=== PATIENT | male | born 1960 | race Asian ===

== ENCOUNTER 2017-02-03 04:19 | Emergency (ER) | payer BC ==
[~2017-02-03] VITALS: Ht 180.3 cm; Wt 68.0 kg
[2017-02-03 04:19] VITALS: BP 0/0; PULSE 0; RESP 0; TEMP 97.3; O2SAT 0
--- NOTE | 2017-02-03 04:19 | NUR ---
Per , patient was found "gurgling" in his sleep at approximately 0330 am, attempted CPR and called 911 at 0342 am. 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 Patient arrived in asystole, skin cyanotic and pale, with apneic respirations, chest compressions and CPR in progress. MD at bedside. CPR continued. Per patient , patient has HX of : HTN, Aneurysm, and enlarged aorta. Patient was reported by to have "not been to the doctor since 2013."
--- NOTE | 2017-02-03 04:19 | NUR ---
Placed in room 01 . Placed on gas leak inspector helper, blood pressure machine and pulse oximeter. To gown for exam. Side rails up. Report given to GALE Recinos.
--- NOTE | 2017-02-03 04:19 | NUR ---
Pt to bed 1. Brought in by [facility]. ER physician notified. In full arrest, CPR in progress. Celestine airway placed in field ventilation being assisted by paramedics. 20 L AC IV started in field. Four rounds of Epinephrine given in field. Code michelle called. Please see code blue sheet.
--- NOTE | 2017-02-03 04:20 | NUR ---
Note patty in EDM - 02/03/17 at 0745 by SDEDLJ Per , patient was found "gurgling" in his sleep at approximately 0330 am, attempted CPR and called 911 at 0342 am. 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 Patient arrived in asystole, skin cyanotic and pale, with apneic respirations, chest compressions and CPR in progress. MD at bedside. CPR continued. Per patient , patient has HX of : HTN, Aneurysm, and enlarged aorta. Patient was reported by to have "not been to the doctor since 2013."
--- NOTE | 2017-02-03 04:46 | NUR ---
# 20 gauge angiocath placed to right wrist. Use of asceptic technique. Opsite placed over site. Blood return noted. Blood for lab drawn from site including blood cultures & lactic acid. Flushed with 10 cc of normal saline. No evidence of infiltration noted.
--- NOTE | 2017-02-03 05:22 | NUR ---
[facility] GALE Elise[facility] Case #[id number].
[2017-02-03 05:42] LABS: BASOPHILS # (AUTO) 0.1 K/uL (0.0-0.2); EOSINOPHILS % (AUTO) 0.2 % (0.0-4.0); MEAN CORPUSCULAR HEMOGLOBIN 34 pg (27-31); MONOCYTES # (AUTO) 0.7 K/uL (0.0-1.0)
--- NOTE | 2017-02-03 05:44 | NUR ---
[facility] Department of Cistern Room Operator called contacted by DORA. Spoke with Jacque. No case # given per Cistern Room Operator's office. Confirmed that body may be released to Mortuary.
[2017-02-03 05:45] LABS: CALCIUM 8.3 mg/dL (8.4-11.0); CREATININE 1.96 mg/dL (0.55-1.30)
[2017-02-03 05:49] LABS: BASOPHILS % (AUTO) 1.6 % (0.0-2.0); HEMATOCRIT 37.5 % (36-54); HEMOGLOBIN 12.1 g/dL (14.0-18.0); INR 1.6 (0.80-1.20); LYMPHOCYTES # (AUTO) 3.4 K/uL (1.0-5.5); LYMPHOCYTES % (AUTO) 37.5 % (20.5-51.5); MEAN CORPUSCULAR HGB CONC 32 % (32-36); MEAN CORPUSCULAR VOLUME 104 fL (79.0-98.0); MONOCYTES % (AUTO) 7.5 % (1.7-9.3); NEUTROPHILS # (AUTO) 4.8 K/uL (1.8-7.7); NEUTROPHILS % (AUTO) 53.2 % (40.0-70.0); PLATELET COUNT (AUTO) 83 K/uL (130-430); PROTHROMBIN TIME 17.1 SECS (9.5-12.5); RED BLOOD CELL COUNT(AUTO) 3.61 MIL/uL (4.2-6.2); RED CELL DISTRIBUTION WIDTH 11.6 % (9.0-15.0)
[2017-02-03 05:50] LABS: ALBUMIN 2.9 g/dL (3.4-4.8); TOTAL BILIRUBIN 2.2 mg/dL (0.0-1.0); TOTAL PROTEIN, SERUM 6.2 g/dL (6.4-8.3)
--- NOTE | 2017-02-03 06:22 | NUR ---
[facility] Department of Hospitality Aide called contacted by GALE Elise. Spoke with Jb in regards to patient PCP unwilling to sign certificate no Case # given, per Jb patient does not qualify as a rv detailer's case and "Mortuary will know what to do."
--- NOTE | 2017-02-03 06:22 | NUR ---
Dr. Calderón on the phone with ER MD Dr. Rocha.
[2017-02-03 06:36] LABS: POTASSIUM 4.6 mmol/L (3.5-5.1)
--- NOTE | 2017-02-03 07:12 | NUR ---
Patient family stated they contacted the mortuary via Family members: Crow and Tamia Paredes. Patient stated that they will be calling the hospital is regards to the release of the patient remains.
--- NOTE | 2017-02-03 07:15 | NUR ---
Post mortem care provided to patient by GALE Benton and GALE Elise.
--- NOTE | 2017-02-03 08:40 | NUR ---
Social Service Note: CONSUMER RECRUITER was called to ED to meet with pt's family to discuss mortuary arrangements. Emotional support was provided to pt's family. Pt's family states that [facility] [place]. Pt's family states that they would like to wait until pt's dtr has been contacted and arrives to hospital. CONSUMER RECRUITER alerted pt's family that hospital would call mortuary and see when they could pickle pumper the body and go from there. Pt's nurse contacted mortuary and mortuary stated pickle pumper would be around 9:30am/10:00am. CONSUMER RECRUITER updated pt's family. Pt's family states that they have no other needs/concerns at this time. CONSUMER RECRUITER will remain available for support and will follow up as needed. Addendum: 02/03/17 at 1024 by Felisha Becerra LCSW CONSUMER RECRUITER was called back to ED to meet with pt's family. Pt's family is requesting a affirmative action officer or someone to pray with family and pt's body. CONSUMER RECRUITER alerted pt's family that there is no affirmative action officer on staff available; CONSUMER RECRUITER would have to call a local mu-ism. Pt's nurse stated to CONSUMER RECRUITER that mortuary is at hospital to pickle pumper body. CONSUMER RECRUITER spoke with pt's family; pt's family has decided to have family members meet in pt's room and pray together as a family; CONSUMER RECRUITER provided emotional support. Family prayed in pt's room. Family ready for mortuary to pickle pumper pt's body. CONSUMER RECRUITER has alerted pt's nurse. CONSUMER RECRUITER will remain available for support and will follow up as needed.
[2017-02-03] MEDS ORDERED: EPINEPHrine JECT 1 MG/10 ML SYR ONE (09:00)
--- NOTE | 2017-02-03 10:26 | NUR ---
Patient to be transferred to [facility] . Is being transferred due to pt is .
== END 2017-02-03 10:22 | disposition expired ==
LOC: SED 04:19
DX: I46.9 Cardiac arrest, cause unspecified (principal); I10 Essential (primary) hypertension; I71.9 Aortic aneurysm of unspecified site, without rupture
CPT/HCPCS: 31500; 36415; 80053; 84484; 85025; 85610; 85730; 92950; 99285; J0171